=== PATIENT | male | born 1960 | race Caucasian/White ===

== ENCOUNTER 2022-12-26 09:05 | Day surgery (SDC) | payer OTHER ==
[2022-12-25 14:04] LABS: BASOPHILS % (AUTO) 0.8 % (0-1); EOSINOPHILS # (AUTO) 0.1 X10'3 (0-0.9); EOSINOPHILS % (AUTO) 1.3 % (0-6); HEMATOCRIT 42.2 % (42.0-52.0); HEMOGLOBIN 14.5 g/dl (14.0-17.9); LYMPHOCYTES # (AUTO) 1.7 X10'3 (1.1-4.8); LYMPHOCYTES % (AUTO) 32.5 % (21-51); MEAN CORPUSCULAR HEMOGLOBIN 32.7 PG (27.0-31.0); MEAN CORPUSCULAR HGB CONC 34.3 g/dL (33.0-36.5); MEAN CORPUSCULAR VOLUME 95.2 FL (78-98); MEAN PLATELET VOLUME 8.7 FL (7.4-10.4); MONOCYTES # (AUTO) 0.3 X10'3 (0-0.9); MONOCYTES % (AUTO) 6.2 % (2-12); NEUTROPHILS # (AUTO) 3.1 X10'3 (1.8-7.7); NEUTROPHILS % (AUTO) 59.2 % (42-75); PLATELET COUNT 210 X10'3 (140-440); RED BLOOD COUNT 4.44 X10'6 (4.70-6.10); RED CELL DISTRIBUTION WIDTH 12.8 % (11.5-14.5); WHITE BLOOD COUNT 5.2 X10'3 (4.5-11.0)
[2022-12-25 14:30] LABS: ALBUMIN 3.7 G/DL (3.4-5.0); ANION GAP 8 (8-16); BLOOD UREA NITROGEN 20 MG/DL (7-18); BUN/CREATININE RATIO 18.2 (10.0-20.0); CALCIUM 8.5 MG/DL (8.5-10.1); CHLORIDE 109 MMOL/L (99-107); GLUCOSE 71 MG/DL (70-104); POTASSIUM 3.7 MMOL/L (3.5-5.1); SODIUM 145 MMOL/L (135-145); eGFR 68 ML/MIN
[2022-12-25 14:32] LABS: APTT 27 SECONDS (22-32)
[~2022-12-26] VITALS: Ht 177.8 cm; Wt 95.9 kg
[2022-12-26] VITALS (9 sets, daily range): BP systolic 124–147; BP diastolic 40–65; PULSE 44–67; RESP 12–17; TEMP 98.2; O2SAT 94–96
[2022-12-26] MEDS ORDERED: normal saline 1,000 ML IV SCH (09:15)
[2022-12-26] MEDS ORDERED: diphenhydrAMINE 25mg capsule PO PRN (09:15)
[2022-12-26] MEDS ORDERED: LORazepam 0.5 MG tablet PO PRN (09:15)
[2022-12-26] MEDS ORDERED: ASPI81TA52 PO (09:23)
[2022-12-26] MEDS ORDERED: INSU100C4 SQ (09:23)
[2022-12-26] MEDS ORDERED: GABA-535 PO (09:23)
[2022-12-26] MEDS ORDERED: ATOR-2 PO (09:23)
[2022-12-26] MEDS ORDERED: LISI2.5T14 PO (09:23)
[2022-12-26] MEDS ORDERED: INSU100V9 SQ (09:23)
[2022-12-26] MEDS ORDERED: TRAZ-251 PO (09:23)
[2022-12-26] MEDS ORDERED: ACET-1025 PO (09:23)
[2022-12-26] MEDS ORDERED: nitroGLYCERIN-Tridil 50MG/D5W 250 ML IV ONE (11:42)
[2022-12-26] MEDS ORDERED: LIDOcaine 1% (10mg/ml) 2ml vial ONE (11:42)
[2022-12-26] MEDS ORDERED: verapamil 2.5 mg/ml inj IV ONE (11:42)
[2022-12-26] MEDS ORDERED: midazolam 1 mg/ML 2ml injection ONE (11:42)
[2022-12-26] MEDS ORDERED: fentaNYL/PF 50MCG/1 ML 2ML syringe ONE (11:43)
[2022-12-26] MEDS ORDERED: iohexol 350MG/ML 100ml bottle IV ONE (11:43)
[2022-12-26] MEDS ORDERED: heparin 1,000unit/ml 10ml vial 10 ML ONE (11:43)
[2022-12-26] MEDS ORDERED: iohexol 350 MG/ML 50ML vial IV ONE (11:44)
[2022-12-26] MEDS ORDERED: atropine 0.1mg/ml 10ml syringe ONE (12:13)
[2022-12-26] MEDS ORDERED: normal saline 1000ml 1,000 ML IV SCH (13:15)
== END 2022-12-26 17:00 | disposition home or self-care (01) ==
LOC: SSTAY O 09:05
PROVIDERS: ATTEND Internal Medicine Cardiovascular Disease
DX: T82.855A Stenosis of coronary artery stent, initial encounter (principal); I25.10 Atherosclerotic heart disease of native coronary artery without angina pectoris; E78.5 Hyperlipidemia, unspecified; I10 Essential (primary) hypertension; E11.42 Type 2 diabetes mellitus with diabetic polyneuropathy; I49.5 Sick sinus syndrome; Z95.5 Presence of coronary angioplasty implant and graft; Z79.4 Long term (current) use of insulin; Z79.82 Long term (current) use of aspirin; Z79.899 Other long term (current) drug therapy; Z72.89 Other problems related to lifestyle; Z80.0 Family history of malignant neoplasm of digestive organs; Z84.1 Family history of disorders of kidney and ureter; Y84.0 Cardiac catheterization as the cause of abnormal reaction of the patient, or of later complication, without mention of misadventure at the time of the procedure; Y92.89 Other specified places as the place of occurrence of the external cause
CPT/HCPCS: 36415; 80048; 82948; 85025; 85610; 85730; 93005; 93458; 99152; 99153; J0461; J1644; J2250; J3010; J3490; J7030; Q0163; Q9967; A6258; A6449; C1725; C1894

== ENCOUNTER 2024-02-20 05:49 | Day surgery (SDC) | payer OTHER ==
[2024-02-19 15:06] LABS: BASOPHILS % (AUTO) 0.6 % (0-1); EOSINOPHILS # (AUTO) 0.1 X10'3 (0-0.9); EOSINOPHILS % (AUTO) 2.4 % (0-6); HEMATOCRIT 43.6 % (42.0-52.0); HEMOGLOBIN 14.5 g/dl (14.0-17.9); LYMPHOCYTES # (AUTO) 1.5 X10'3 (1.1-4.8); LYMPHOCYTES % (AUTO) 24.3 % (21-51); MEAN CORPUSCULAR HEMOGLOBIN 32.1 PG (27.0-31.0); MEAN CORPUSCULAR HGB CONC 33.3 g/dL (33.0-36.5); MEAN CORPUSCULAR VOLUME 96.2 FL (78-98); MONOCYTES # (AUTO) 0.5 X10'3 (0-0.9); MONOCYTES % (AUTO) 7.8 % (2-12); NEUTROPHILS % (AUTO) 64.9 % (42-75); PLATELET COUNT 282 X10'3 (140-440); RED BLOOD COUNT 4.53 X10'6 (4.70-6.10); RED CELL DISTRIBUTION WIDTH 12.6 % (11.5-14.5); WHITE BLOOD COUNT 6.2 X10'3 (4.5-11.0)
[2024-02-19 15:19] LABS: APTT 26 SECONDS (22-32); PROTHROMBIN TIME 10.9 SECONDS (9.0-12.0)
[2024-02-19 15:21] LABS: ALBUMIN 3.4 G/DL (3.4-5.0); ANION GAP 5 (8-16); BLOOD UREA NITROGEN 18 MG/DL (7-18); BUN/CREATININE RATIO 16.5 (10.0-20.0); CHLORIDE 109 MMOL/L (99-107); CREATININE 1.09 MG/DL (0.60-1.10); GLUCOSE 141 MG/DL (70-104); POTASSIUM 4.7 MMOL/L (3.5-5.1); SODIUM 142 MMOL/L (135-145); eGFR 68 ML/MIN
[~2024-02-20] VITALS: Ht 177.8 cm; Wt 98.7 kg
[2024-02-20] VITALS (12 sets, daily range): BP systolic 120–157; BP diastolic 46–71; PULSE 47–67; RESP 11–17; TEMP 97.9; O2SAT 95–97
[~2024-02-20 05:49] MED LIST: ACET-1025 PO; ASPI81TA52 PO; ATOR-2 PO; GABA-535 PO; INSU100C4 SQ; INSU100V9 SQ; LISI2.5T14 PO; TRAZ-251 PO
[2024-02-20] MEDS ORDERED: cefazolin 2gm/D5W 100mL 100 ML IV ONE (06:39)
[2024-02-20] MEDS ORDERED: ceFAZolin 1000mg inj ONE (07:14)
[2024-02-20] MEDS ORDERED: LIDOcaine 1% W/epiNEPHrine 1:100,000 20ml vial ONE (07:14)
[2024-02-20] MEDS ORDERED: fentaNYL/PF 50MCG/1 ML 2ML syringe ONE (07:14)
[2024-02-20] MEDS ORDERED: midazolam 1 mg/ML 2ml injection ONE (07:14)
[2024-02-20] MEDS ORDERED: IBUP-49 PO (07:47)
[2024-02-20] MEDS ORDERED: iohexol 350MG/ML 100ml bottle IV ONE (08:06)
[2024-02-20] MEDS ORDERED: diphenhydrAMINE 50 mg/ml inj ONE (08:31)
[2024-02-20] MEDS ORDERED: HYDROcodone/acetaminophen 5mg/325mg tablet PO PRN (09:45)
[2024-02-20] MEDS ORDERED: CEPH-585 PO (10:02)
[2024-02-20] MEDS: vancomycin/NS 1 GM ADD-VANTAGE 250 ML X 1 DOSE IV ONE (11:21)
[2024-02-20] MEDS: HYDROcodone/acetaminophen 10/325mg tab PO PRN (12:37)
== END 2024-02-20 15:30 | disposition home or self-care (01) ==
LOC: SSTAY O 05:49
PROVIDERS: ATTEND Internal Medicine Cardiovascular Disease
DX: I49.5 Sick sinus syndrome (principal); I25.10 Atherosclerotic heart disease of native coronary artery without angina pectoris; E11.40 Type 2 diabetes mellitus with diabetic neuropathy, unspecified; I10 Essential (primary) hypertension; E78.5 Hyperlipidemia, unspecified; Z95.5 Presence of coronary angioplasty implant and graft; Z98.890 Other specified postprocedural states; Z79.4 Long term (current) use of insulin; Z79.01 Long term (current) use of anticoagulants; Z79.899 Other long term (current) drug therapy
CPT/HCPCS: 33208; 36415; 71046; 80048; 82948; 85025; 85610; 85730; 93005; C1785; C1898; J0690; J1200; J2250; J3010; J3370; J3490; J7030; Q9967; 99152; 99153; A4565; A6449